=== PATIENT | female | born 2005 | race Two or more races ===

== ENCOUNTER 2024-10-15 10:56 | Inpatient (IN) | payer BC, MEDICAID, SELFPAY ==
[2024-10-15] VITALS (128 sets, daily range): BP systolic 113–121; BP diastolic 56–75; PULSE 83–118; RESP 15–99; TEMP 36.7–37.1; O2SAT 88–100; BMI 33.8
[2024-10-15] MEDS: RINGERS LACTATED 1000 ML 1,000 ML 100 ML IV (11:35)
[2024-10-15 11:49] LABS: Basophils % (Auto) 0 % (0-2.5); Eosinophils # (Auto) 0.1 Thou/mm3 (0.0-0.5); Eosinophils % (Auto) 1 % (0-10); Hematocrit 29.6 % (36.0-46.0); Hemoglobin 9.5 g/dL (12.0-16.0); Immature Granulocytes % (Auto) 1 % (0-0); Immature Granulocytes Auto 0.06 Thou/mm3 (0.00-0.00); Lymphocytes # (Auto) 1.6 Thou/mm3 (1.0-4.8); Lymphocytes % (Auto) 16 % (10-50); Mean Corpuscular HGB Conc 32.1 g/dl (31.0-37.0); Mean Corpuscular Hemoglobin 24.3 pg (25.0-35.0); Mean Corpuscular Volume 76 fL (80-100); Monocytes # (Auto) 0.9 Thou/mm3 (0.0-0.8); Monocytes % (Auto) 9 % (0-12); Neutrophils # (Auto) 7.3 Thou/mm3 (1.8-7.7); Neutrophils % (Auto) 74 % (37-80); Nucleated Red Blood Cell % 0 /100 WBC (0); Platelet Count 352 Thou/mm3 (140-440); RDW Standard Deviation 41.5 fL (36.4-46.3); Red Blood Count 3.91 Miln/mm3 (4.00-5.20); White Blood Count 9.9 Thou/mm3 (4.5-11.0)
[2024-10-15] MEDS: MISOPROSTOL 50 mCg TABLET PO ×3 (12:05→21:05)
--- NOTE | 2024-10-15 12:28 | PD.LDHP ---
Documentation for date of: 10/15/24 OB Labor/Induct. HPI History of Present Illness Chief complaint: 19 y/o 39w 5d presents for elective IOL due to maternal discomfort : 1 Para: 0 Term pregnancies: 0 pregnancies: 0 Living children: 0 History of Abortions: Spontaneous and Elective: 0 History of Vaginal deliveries: 0 History of sections: No History of : No Date of last menstrual period: 01/11/24 LIO: 10/17/24 Gestational Age (weeks): 39 Gestational Age (days): 5 Gestational age based on last menstrual period: 39 Indication for induction: maternal discomfort History of present illness: 19 y/o 39w 5d presents for elective IOL due to maternal discomfort. has been uncomplicated with the exception of anemia. GBS is neg, cervix is 2/60/-3 vertex. EFW 3400g. Pt family hx consists of hemorrhage. Her mother and both sisters all had PPH after each delivery. I delivered her last two sisters both first babies had a hemorrhage. Plan for PPH at delivery. History of Present Dating criteria: based on LMP only Adequate Care: Yes Ultrasounds: normal 1st trimester US and normal mid trimester US Obstetrical complications: other (anemia) Labs Maternal Blood Type: O Pos Labs: Positive: Rubella Titre, Negative: RPR, Hepatitis B, HIV, Chlamydia, Gonorrhea and Group Beta Strep and Unknown: Herpes Type 1, Herpes Type 2 and Covid-19 Review of Systems Review of Systems Systems Reviewed: All systems reviewed, normal except as documented Past Medical History Surgical History SURGICAL: Negative Section Meds Home Medications and Allergies Home Medications ?Medication ?Instructions ?Recorded ?Confirmed ?Type ferrous sulfate 325 mg (65 mg mg 10/15/24 History iron) tablet Allergies Allergy/AdvReac Type Severity Reaction Status Date / Time No Known Allergies Allergy Verified 10/15/24 11:49 OB Exam Physical Exam Vital signs: Temp Pulse Resp BP Pulse Ox 98.1 F 107 H 16 121/75 96 10/15/24 11:15 10/15/24 11:20 10/15/24 11:20 10/15/24 11:15 10/15/24 12:23 Constitutional Constitutional: no acute distress Routine HEENT Exam Head: Present normocephalic and atraumatic Eye: Present EOMI, PERRL and normal accommodation ENT: Present mucous membranes moist Routine Neck Exam Neck: Present full ROM Routine Respiratory Exam Respiratory: Absent respiratory distress Routine Cardiovascular Exam Cardiovascular: Present RRR Routine Abdominal Exam Abdominal: Present soft Comments: Gravid Uterus EFW 3400g Routine Exam External: Present normal urethra appearance; Absent lesions Detailed Labor and Delivery Exam Dilation (cm): 2 Effacement (%): 60 Cervix position: posterior station: -3 Consistency: soft Presentation: Vertex Membranes: intact Baseline heart rate: 120 monitor accelerations: 15x15 monitor decelerations: None nursing home variability: Moderate (11-25) Contraction frequency (min): 2-6 Routine Extremities Exam Extremities: Present full ROM Routine Back/Spine/Pelvis Exam Back/Spine: Present full ROM Routine Skin Exam Skin: Present intact, dry and warm Routine Neurological Exam Neurological: Present alert, oriented X3 and CN II-XII intact Routine Psychiatric Exam Psychiatric: Present normal affect and normal thought process OB Results Labs 10/15/24 11:19 Labs: Short CBC 10/15/24 Range/Units 11:19 WBC 9.9 (4.5-11.0) Thou/mm3 Hgb 9.5 L (12.0-16.0) g/dL Hct 29.6 L (36.0-46.0) % Plt Count 352 (140-440) Thou/mm3 OB Assessment & Plan Assessment and Plan (1) Encounter for induction of labor: Status: Acute (2) Anemia affecting in third trimester: Status: Acute (3) with 39 completed weeks gestation: Status: Acute Additional Plan Induction method: per misoprostol protocol Plan: induction, anticipate NVD and consult prn Additional Plan Comment: Routine admit orders Ok to eat regular diet until active labor Consult anesthesia for an epidural at 3 cm Plan for PPH with PPH meds at bedside Order 2 units pRBCs on hold
[2024-10-15 13:44] LABS: Syphilis Nonreactive (Nonreactive)
--- NOTE | 2024-10-15 16:53 | XR_ITS ---
Examination: visualization limited TECHNIQUE: Limited transabdominal sonographic images pelvis Exam date and time: October 15, 2024 1713 hours INDICATIONS: Labor induction today, unknown weight and known presentation FINDINGS: Viable intrauterine gestation cephalic presentation. spine maternal right. Cardiac motion 138 BPM. Estimated gestational age 37 weeks 0 days Estimated weight 3019 g IMPRESSION: Viable intrauterine gestation cephalic presentation
[2024-10-16] VITALS (212 sets, daily range): BP systolic 94–148; BP diastolic 53–84; PULSE 74–180; RESP 16–20; TEMP 36.7–37.2; O2SAT 79–100
[2024-10-16] MEDS: MISOPROSTOL 50 mCg TABLET PO (03:08)
--- NOTE | 2024-10-16 07:42 | PD.LDPN ---
Documentation for date of: 10/16/24 OB Labor Progress Note Pain Control Pain control: tolerating well Pelvic Exam Dilation (cm): 3 Effacement (%): 70 station: -3 Amniotic membrane status: Intact Contractions Monitor mode: External Contraction frequency: 2-5 Contraction intensity: Mild Status status: Category l Assessment and Plan Assessment: induction ongoing Plan OB labor note: begin Pitocin augmentation Comments: Pt to eat breakfast, then will start pitocin per protocol Cat 1 tracing Consult anesthesia for an epidural per pt request Anticipate
[2024-10-16] MEDS: RINGERS LACTATED 1000 ML 1,000 ML 100 ML IV ×2 (08:47→16:26)
[2024-10-16] MEDS: OXYTOCIN in NS 30 units 30 UNIT/500 ML BAG IV (08:47)
--- NOTE | 2024-10-16 17:09 | PD.LDPN ---
Documentation for date of: 10/16/24 OB Labor Progress Note Pain Control Pain control: tolerating well Pelvic Exam Dilation (cm): 3 Effacement (%): 70 station: -2 Amniotic membrane status: Ruptured (clear) Contractions Monitor mode: External Contraction frequency: 3-5 Contraction duration: 40-60 Contraction phase: Contraction Contraction intensity: Moderate Status status: Category l Assessment and Plan Assessment: induction ongoing Plan OB labor note: continuous present management Comments: Pt has made no cervical change, station is a little lower -2, head well applied, AROM performed - clear fluids Consult anesthesia for an epidural Pt to be placed on a peanut ball Updated Dr. Mancuso Anticipate
[2024-10-16] MEDS: fentaNYL CIT INJ 50 mCg/ML AMP 2ML 100 MCG IV (18:07)
[2024-10-16] MEDS: METHYLERGONOVINE INJ 0.2 MG/ML VIAL IM (23:36)
[2024-10-16] MEDS: MINERAL OIL 30 ML UDC TOP (23:37)
--- NOTE | 2024-10-16 23:45 | OBDSUM_ITS ---
Data ([place]) Data Hx Section: No Maternal Blood Type: O Pos Rubella Titre: Positive RPR: Non-reactive Labs: Negative: RPR, Hepatitis B, HIV, Chlamydia, Gonorrhea and Group Beta Strep and Unknown: Herpes Type 1 and Herpes Type 2 : 1 Para: 0 Term: 0 : 0 Livin : 0 Delivery Data ([place]) Labor Data Stimulated/Augmented: No Induction: Yes Method: Cytotec ROM Date: 10/16/24 ROM Time: 17:04 Rupture Type: AROM Amniotic Fluid: Clear Delivery Data EDC: 10/17/24 EDC calculated by:: LMP Labor Onset Stage 1 Date: 10/16/24 Labor Onset Stage 1 Time: 19:13 Labor Onset Stage 2 Date: 10/16/24 Labor Onset Stage 2 Time: 21:11 Delivery Date: 10/16/24 Delivery Time: 23:20 Gestational age (weeks): 39 Gestational age (days): 6 Placenta Delivery Date: 10/16/24 Placenta Delivery Time: 23:32 Delivered by: Sima Mcgregor Delivery nurse: Cinthya Quinn Drywall Applicator at delivery: No Support person(s) at delivery: FOB Other staff at delivery: Nursery Nurse Other staff at delivery: Arielle Chairez Delivery Method Delivery: Vaginal Delivery Type: Spontaneous Presentation: Vertex Position: OA Anesthesia Type Primary Anesthesia: Epidural Delivery Room Medications Other Intrapartum Medications: No Placenta Placenta Delivery: Spontaneous Placenta Cultures Obtained: No Placenta Sent for Examination: No Cord Sample: Cord Blood Obtained Episiotomy Episiotomy: None Lacerations #1: Perineal: 2nd degree Labial: right labial Perineal repair Sutures used for repair: 3.0 Vicryl (ct) and 4.0 Vicryl (sh) EBL Estimated blood loss (ml): 300 Umbilical Cord Umbilical Vessels: 3 Nuchal Cord: Not Applicable Body Cord: Not Applicable Additional Procedures During few pushes patient had an of a viable male . 's anterior shoulder delivered with gentle downward traction subsequent deliver the posterior shoulder and the body without complications. Infant placed on mother's abdomen. Vigorous cry upon delivery. Cord was clamped. Cut by FOB. Cord blood obtained. Three-vessel cord noted. Placenta expelled spontaneously and intact. Patient sustained a second-degree perineal laceration, repaired using a 3-[address] suture. Patient also sustained a right labial laceration which was repaired using a 4-0 Vicryl on an SH suture. Excellent hemostasis achieved after vigorous fundal massage and removal of clots from the posterior fornix. EBL 300. Sponge and needle count correct. Methergine x 1 given, TXA x 1 given and 2 bags of IV Pitocin prophylactically due to patient's strong family history of hemorrhage. Mother and baby stable, skin to skin and bonding in LDR. [place] Data ([place]) Data Infant Gender: Male Infant Weight Grams: 3055 1 Minute Total: 9 5 Minute Total: 9
[2024-10-16] MEDS: TRANEXAMIC ACID 1,000 MG IVPB 1,000 MG/100 ML BAG 200 MG IV (23:50)
[2024-10-16] MEDS: OXYTOCIN in NS 20 units 20 UNIT/1,000 ML BAG 125 UNIT IV (23:53)
[2024-10-17] VITALS (10 sets, daily range): BP systolic 102–145; BP diastolic 52–76; PULSE 92–118; RESP 17–18; TEMP 36.3–37.2; O2SAT 96–99
[2024-10-17] MEDS: IBUPROFEN TAB 400 MG TABLET 800 MG PO ×2 (00:10→16:52)
[2024-10-17 06:47] LABS: Basophils % (Auto) 0 % (0-2.5); Eosinophils % (Auto) 0 % (0-10); Hematocrit 28.4 % (36.0-46.0); Immature Granulocytes % (Auto) 1 % (0-0); Immature Granulocytes Auto 0.08 Thou/mm3 (0.00-0.00); Lymphocytes # (Auto) 1.3 Thou/mm3 (1.0-4.8); Lymphocytes % (Auto) 8 % (10-50); Mean Corpuscular HGB Conc 31.7 g/dl (31.0-37.0); Mean Corpuscular Hemoglobin 24.5 pg (25.0-35.0); Mean Corpuscular Volume 77 fL (80-100); Monocytes # (Auto) 1.1 Thou/mm3 (0.0-0.8); Monocytes % (Auto) 7 % (0-12); Neutrophils # (Auto) 13.5 Thou/mm3 (1.8-7.7); Neutrophils % (Auto) 84 % (37-80); Nucleated Red Blood Cell % 0 /100 WBC (0); Platelet Count 304 Thou/mm3 (140-440); RDW Standard Deviation 42.8 fL (36.4-46.3); Red Blood Count 3.67 Miln/mm3 (4.00-5.20)
[2024-10-17] MEDS: DOCUSATE SOD 100 MG CAPSULE PO (08:44)
--- NOTE | 2024-10-17 17:25 | PD.LDPPPRG ---
Subjective Subjective Interval history: 19 y/o day 1 patient is stable and afebrile doing well. Ambulating to the bathroom voiding with no problems already had a bowel movement reports minimal lochia. Breast-feeding . No complaints. Exam Vital Signs Temp Pulse Resp BP Pulse Ox O2 Del Method 97.4 F 98 18 107/73 99 Room Air 10/17/24 17:15 10/17/24 17:15 10/17/24 17:15 10/17/24 17:15 10/17/24 17:15 10/17/24 17:15 Constitutional Constitutional: no acute distress Routine HEENT Exam Head: Present normocephalic and atraumatic Eye: Present EOMI, PERRL and normal accommodation ENT: Present mucous membranes moist Routine Neck Exam Neck: Present full ROM Routine Respiratory Exam Respiratory: Present chest non-tender, lungs clear, normal breath sounds and no resp distress Routine Cardiovascular Exam Cardiovascular: Present RRR Routine Abdominal Exam Abdominal: Present soft and normoactive bowel sounds Routine Exam Patient deferred: external exam Routine Extremities Exam Extremities: Present full ROM Routine Back/Spine/Pelvis Exam Back/Spine: Present full ROM Routine Skin Exam Skin: Present intact, dry and warm Routine Neurological Exam Neurological: Present alert, oriented X3 and CN II-XII intact Routine Psychiatric Exam Psychiatric: Present normal affect and normal thought process Objective Labs 10/17/24 06:17 Labs: Laboratory Results - last 24 hr 10/17/24 06:17 WBC 16.0 H D RBC 3.67 L Hgb 9.0 L Hct 28.4 L MCV 77 L MCH 24.5 L MCHC 31.7 RDW Std Deviation 42.8 Plt Count 304 D Neut % (Auto) 84 H Lymph % (Auto) 8 L [place] % (Auto) 7 Eos % (Auto) 0 Baso % (Auto) 0 Neut # (Auto) 13.5 H Lymph # (Auto) 1.3 [place] # (Auto) 1.1 H Eos # (Auto) 0.0 Baso # (Auto) 0.0 Immature Gran # (Auto) 0.08 H Absolute Nucleated RBC 0.00 Immature Gran % 1 H Nucleated RBC % 0 Assessment & Plan Problem List (1) Normal spontaneous vaginal delivery: Status: Acute (2) Encounter for care of lactating mother: Status: Acute (3) Encounter for induction of labor: Status: Acute (4) with 39 completed weeks gestation: Status: Acute (5) Anemia affecting in third trimester: Status: Acute Plan Comment Plan Comment: Patient is doing well and Continue routine care Encourage patient to hydrate and ambulate more. Anticipate discharge home tomorrow Time Spent With Patient Time: Total time spent is greater than 50% in coordination of care (as documented) at patient's floor/unit and/or counseling patient:
[2024-10-18] MEDS: IBUPROFEN TAB 400 MG TABLET 800 MG PO (00:37)
[2024-10-18 04:10] VITALS: BP 122/73; PULSE 85; RESP 18; TEMP 36.4; O2SAT 98
[2024-10-18 08:00] VITALS: BP 118/77; PULSE 85; RESP 17; TEMP 36.6; O2SAT 98
[2024-10-18] MEDS: DOCUSATE SOD 100 MG CAPSULE PO (08:26)
--- NOTE | 2024-10-18 09:26 | ESDS_ITS ---
DS: Providers Provider Date of admission: 10/15/24 10:56 Primary care physician: Physician No Primary/Family Admitting Provider: Beth Mancuso MD Attending Provider on Admission: Sima Mcgregor CNM Attending Provider on DC: Sima Mcgregor CNM Discharging Provider: Sima Mcgregor CNM Anticipated date of discharge: 10/17/24 DS: Diagnosis Discharge Diagnosis (1) Normal spontaneous vaginal delivery: Status: Acute (2) Encounter for care of lactating mother: Status: Acute (3) Encounter for induction of labor: Status: Acute (4) with 39 completed weeks gestation: Status: Acute (5) Anemia affecting in third trimester: Status: Acute Problem List Completed Was Problem List Reviewed/Reconciled?: Yes Summary/Hosp Course Brief History: 19 y/o 39w 5d presents for elective IOL due to maternal discomfort. has been uncomplicated with the exception of anemia. GBS is neg, cervix is 2/60/-3 vertex. EFW 3400g. Pt family hx consists of hemorrhage. Her mother and both sisters all had PPH after each delivery. I delivered her last two sisters both first babies had a hemorrhage. Plan for PPH at delivery. 10/16/2024: During few pushes patient had an of a viable male infant. 's anterior shoulder delivered with gentle downward traction subsequent deliver the posterior shoulder and the body without complications. placed on mother's abdomen. Vigorous cry upon delivery. Cord was clamped. Cut by FOB. Cord blood obtained. Three-vessel cord noted. Placenta expelled spontaneously and intact. Patient sustained a second-degree perineal laceration, repaired using a 3-[address] suture. Patient also sustained a right labial laceration which was repaired using a 4-0 Vicryl on an SH suture. Excellent hemostasis achieved after vigorous fundal massage and removal of clots from the posterior fornix. EBL 300. Sponge and needle count correct. Methergine x 1 given, TXA x 1 given and 2 bags of IV Pitocin prophylactically due to patient's strong family history of hemorrhage. Mother and baby stable, skin to skin and bonding in LDR. 10/17/24: PPD#1 19 y/o day 1 patient is stable and afebrile doing well. Ambulating to the bathroom voiding with no problems already had a bowel movement reports minimal lochia. Breast-feeding . No complaints. Uterus nontender fundus firm minimal lochia. Encouraged pt to ambulate more, hydrate more. Plan to Dc home tomorrow. 10/18/24: PPD#2 patient is stable and doing well. No complaints. Breast-feeding . Uterus is nontender fundus firm minimal lochia. Eager to go home. D ischarge instructions given. Patient to follow-up with Sima Mcgregor CNM in 3 weeks Peripartum Data Delivery Method: Normal Vaginal Delivery Episiotomy Description: None Laceration Description: yes and see Delivery Summary complications: none [place] 1: Gender: Male Disposition of : home Status at Discharge Cognitive/behavioral status at discharge: Alert and oriented x 3 Functional status at discharge: independent ambulation Overall status at discharge: patient is progressing back to baseline Time Spent with Patient Time attestation: Total time spent providing and/or coordinating discharge services: Time spent: Greater than 30 minutes Exam Vital Signs Temp Pulse Resp BP Pulse Ox 98.4 F 120 H 18 122/56 L 79 L 10/16/24 18:30 10/16/24 23:36 10/16/24 18:30 10/16/24 23:36 10/16/24 22:53 Constitutional Constitutional: no acute distress Routine HEENT Exam Head: Present normocephalic and atraumatic Eye: Present EOMI, PERRL and normal accommodation ENT: Present mucous membranes moist Routine Neck Exam Neck: Present supple, full ROM and trachea midline Routine Respiratory Exam Respiratory: Present chest non-tender, lungs clear, normal breath sounds and no resp distress Routine Cardiovascular Exam Cardiovascular: Present RRR Routine Abdominal Exam Abdominal: Present soft and normoactive bowel sounds; Absent tenderness or distended Comments: Uterus nontender Fundus firm Routine Exam Patient deferred: external exam Routine Extremities Exam Extremities: Present full ROM, pulses intact and normal capillary refill; Absent calf tenderness or tenderness Routine Back/Spine/Pelvis Exam Back/Spine: Present full ROM Routine Skin Exam Skin: Present intact, dry and warm Routine Neurological Exam Neurological: Present alert, oriented X3 and CN II-XII intact Routine Psychiatric Exam Psychiatric: Present normal affect and normal thought process Discharge Plan Plan Patient Disposition: HOME (Self Care) Patient condition on transfer: Stable Prescriptions/Referrals Prescriptions/Med Rec: New ibuprofen 800 mg tablet 800 mg PO Q6H MDD 4 PRN (Reason: pain) Qty: 90 0RF lanolin 50 % ointment 1 applic topical TID PRN (Reason: skin irritation) Qty: 15 0RF docusate sodium [Colace] 100 mg capsule 100 mg PO BID Qty: 60 0RF Continued ferrous sulfate 325 mg (65 mg iron) tablet 325 mg PO QDAY Patient Comments: TAKE 1 TABLET BY MOUTH TWICE A DAY FOR 30 DAYS Referrals: No Primary/Family,Physician [Primary Care Provider] - Patient/Caregiver Discharge Instructions Meds to Beds: No Discharge Activity: activity as tolerated Other Discharge Activity Instructions:: Follow-up with Sima Mcgregor CNM in 3 weeks Education Materials: After a Vaginal , Incision Care After Vaginal , , : Caring for Yourself Print Language: Bhutanese Stand Alone Forms: Lexi Award Info., Patient Portal Info Letter Discharge Order Discharge Orders: Discharge (Routine); Ordered 10/18/24 Ordered By: Sima Mcgregor Planned Discharge Date 10/17/24
== END 2024-10-18 11:20 | disposition home or self-care (01) | DRG 807 ==
LOC: S4SX 10-16 23:53 → S4NX 10-17 01:49
PROVIDERS: Admitting Provider Student in an Organized Health Care Education/Training Program; Visit Provider Nurse Practitioner Women's Health
DX: O70.1 Second degree perineal laceration during delivery (principal); Z37.0 Single live birth; Z3A.39 39 weeks gestation of pregnancy
CPT/HCPCS: 36415; 59409; 76815; 85025; 86780; 86850; 86900; 86901; 94762; J2210; J2590; J2795; J3010; J3490; J7120; A9270